=== PATIENT | male | born 1960 | race Caucasian/White ===

== ENCOUNTER 2025-03-20 07:00 | Day surgery (SDC) | payer OTHER ==
[2025-03-19 13:57] VITALS: BP 150/92
[~2025-03-20] VITALS: Ht 175.3 cm; Wt 90.7 kg
[~2025-03-20 07:00] MED LIST: BENICAR20 MG PO; GABAPENTIN300 M2 PO
[2025-03-20] MEDS ORDERED: CEFTRIAXONE SODIUM 2,000 MG VIAL ONE (08:19)
[2025-03-20] MEDS ORDERED: METRONIDAZOLE/SODIUM CHLORIDE 500 MG/100 ML PIGGYBACK IV ONE (08:20)
[2025-03-20] MEDS ORDERED: DIBUCAINE 30 GM TUBE ONE (09:21)
[2025-03-20] MEDS ORDERED: LIDOCAINE HCL 1%/EPINEPHRINE 20ML VIAL IJ ONE (09:21)
[2025-03-20] MEDS ORDERED: POVIDONE-IODINE 118 ML BOTT TOP ONE (09:21)
[2025-03-20] MEDS ORDERED: BUPIVACAINE HCL/MPF 0.5% 30ML VIAL ONE (09:21)
[2025-03-20] MEDS ORDERED: HEMOSTATIC MATRIX 1 KIT KIT TOP ONE (09:21)
[2025-03-20] MEDS ORDERED: PERCOCET 5-3251 EACH PO (10:25)
[2025-03-20] MEDS ORDERED: RECTICARE30 GM TOP (10:26)
== END 2025-03-20 17:10 | disposition home or self-care (01) ==
LOC: CIR.AMB 07:00
PROVIDERS: ATTEND Surgery
DX: K60.321 Anal fistula, complex, initial (principal); Z91.013 Allergy to seafood